=== PATIENT | male | born 1965 | race Caucasian/White ===

== ENCOUNTER 2018-11-07 09:15 | Emergency (ER) | payer OTHER, SELFPAY ==
[2018-11-07 09:16] VITALS: BP 128/88; PULSE 88; RESP 20; TEMP 36.6; O2SAT 100; BMI 26.6
--- NOTE | 2018-11-07 09:28 | ED.RN ---
PT STATES HAS GUNS AT HOME. CHOSE TO COME HERE VS OPENING GUN CASE
--- NOTE | 2018-11-07 09:31 | ED.RN ---
protocol orders placed
[2018-11-07 10:04] LABS: Amphetamine Urine VISTA NEGATIVE (<1000 ng/mL); Barbiturate Urine VISTA NEGATIVE (< 200 ng/mL); Benzodiazepine Urine VISTA NEGATIVE (< 200 ng/mL); Cocaine Urine VISTA NEGATIVE (< 300 ng/mL); Ecstacy Urine VISTA NEGATIVE (< 500 ng/mL); Methadone Urine VISTA NEGATIVE (< 300 ng/mL); PCP Urine VISTA NEGATIVE (< 25 ng/mL); THC Urine VISTA NEGATIVE (< 50 ng/mL); Vista UDS pH Range 5
[2018-11-07 10:33] LABS: Absolute Lymphocyte Count 1.33 X10^3/ul (0.83-4.51); Basophil# 0.02 X10^3/uL; Basophil% 0.4 % (0-1); Eosinophil# 0.16 X10^3/uL; Eosinophils% 3.3 % (0-5); Hematocrit 49.6 % (40-54); Hemoglobin 17.1 g/dl (13.0-16.5); Lymphocyte # 1.33 X10^3/ul (4.0); Lymphocyte % 27.1 % (19-41); Mean Corp Hgb Conc 34.5 g/gl (32-36); Mean Corpuscular Volume 95.8 fL (80-94); Monocyte# 0.35 X10^3/uL; Monocyte% 7.1 % (0-10); Neutrophil # 3.04 X10^3/uL (2.7-7.7); Neutrophil % 61.9 % (47-70); Platelet Count 148 K/mm3 (150-450); RBC Distribution Width CV 12.4 % (11.6-14.6); Red Blood Count 5.18 M/mm3 (4.6-6.2); White Blood Count 4.9 K/mm3 (4.4-11.0)
[2018-11-07 10:35] LABS: POSITIVE COUNT NO; POSITIVE DIFFERENTIAL NO; POSITIVE MORPHOLOGY NO
[2018-11-07 10:43] LABS: BUN 10 mg/dL (7-18); BUN/Creat Ratio 13.1 RATIO (10-20); Chloride 110 mmol/L (98-107); Creatinine, Serum 0.76 mg/dL (0.70-1.30); EST Glomerular Filtration Rate 112 mL/min (>60); Est Glom Filt Rate - Afr Amer 136 mL/min (>60); Estimated Creatinine Clearance 120.54 ml/min; Glucose 105 mg/dL (74-106); Sodium Level 143 mmol/L (136-145)
[2018-11-07] MEDS: LORazepam 1 MG Tablet PO (10:43)
[2018-11-07 10:44] LABS: Anion Gap 9 (5-15)
--- NOTE | 2018-11-07 11:18 | NURSING ---
CRISIS AWARE OF PATIENT
--- NOTE | 2018-11-07 11:32 | ED.VISSUMM ---
- ER Visit Summary Date of Service: 11/07/18 Chief Complaint: [Suicidal ideation] History of Present Illness: The patient is a 53 M [presents to the emergency department with thoughts of self-harm. Patient states he has been working long hours at work and traveling a lot. Patient's been under increased stress and is not been having any days off. Patient living on 2-3 hours of sleep at night. Last night he had 1 or 2 beers and had thoughts of self-harm. Patient states that he does have access to a gun and has a 22 rifle that he keeps in 3 pieces and its locked up. He did not act on these thoughts of wanting to harm himself. This morning he had fleeting thoughts once again. Patient states that he has had friends that have committed suicide and did not want to go down that road himself and wanted to speak with somebody this morning. Patient not on any antidepressants. Patient currently living with his girlfriend/fianc? in [facility].] Patient denies any visual or auditory hallucinations. He denies any homicidal thoughts. Patient also with increased anxiety. Physical Examination: [HEENT-PERRLA, EOMI. Cranial nerves II through XII grossly intact. TMs clear. Mucous membranes moist. No adenopathy. Cardiovascular-regular rate and rhythm without murmur or ectopy Lungs-clear to auscultation, chest wall stable without crepitus or subcu emphysema Abdomen-normoactive bowel sounds, soft, nontender, no rebound or rigidity, no peritoneal signs. Extremities-intact ?4, normal range of motion, normal pulses, atraumatic] Test Results: [Alcohol was negative as well as toxicology screen. CBC with differential was normal. Chemistries unremarkable.] Emergency Department Course and Treatment: [Crisis spoke with patient and at this point is not felt patient will require inpatient hospitalization but will have plan in place for patient to follow-up as an outpatient. Patient is comfortable with this and can contract for safety.] Patient was given a dose of Ativan 1 mg p.o. Treatment Plan: [Follow-up with crisis as an outpatient.] Disposition: [Discharged home in stable condition] Impression: [Depression Anxiety] This note was generated with [employer] dictation software. It may contain incorrect words, spelling, and punctuation that were not noted in review of the chart prior to signing
--- NOTE | 2018-11-07 11:36 | ED.DEP ---
ED Disposition - Plan for ED Patient: Instructions: ED Contract, No Harm, ED Depression, ED Stress React Prescriptions: Lorazepam [Ativan] 1 mg PO TID PRN #10 tab PRN Reason: Anxiety Referrals: Counseling,Center [GROUP OF PHYSICIANS] -
[2018-11-07 12:51] VITALS: RESP 18
== END 2018-11-07 12:53 | disposition home or self-care (01) ==
LOC: ED 12:14
PROVIDERS: Emergency Provider Emergency Medicine
DX: F32.9 Major depressive disorder, single episode, unspecified (principal); F41.9 Anxiety disorder, unspecified; R45.851 Suicidal ideations
CPT/HCPCS: 80048; 80307; 80320; 85025; 99284; G0480